=== PATIENT | female | born 1945 | race Caucasian/White ===

== ENCOUNTER 2018-08-31 07:30 | Day surgery (SDC) | payer OTHER, BC ==
[2018-08-31 08:01] VITALS: BMI 19.5
[2018-08-31 08:55] VITALS: TEMP 97.9
[2018-08-31 09:15] VITALS: PULSE 60
[2018-08-31 09:30] VITALS: BP 110/70
--- NOTE | 2018-09-01 16:20 | PATH ---
Surgical Pathology Report Patient Name: ARTEMIO ESPINOSA [facility]. Rec. #: [id number] /Age/Gender: 1945 (Age: 72) / F Account: [id number] Location: [facility]-ENDOSCOPY Taken: 08/31/2018 Received: 08/31/2018 Reported: 09/01/2018 Physicians: Patsy Bernard M.D. Specimen(s) Received A: BX TRANSVERSE COLON POLYP B: RECTAL POLYPS Clinical History History of adenomatous polyps, screening Postoperative diagnosis: Colon polyps, hemorrhoids Final Diagnosis A. TRANSVERSE COLON, POLYP, BIOPSY: COLONIC MUCOSA SHOWING REACTIVE LYMPHOID AGGREGATE. B. RECTUM, POLYPS, BIOPSY: HYPERPLASTIC POLYPS. Electronically Signed Radha Crowder M.D. Gross Description A. Received in formalin, labeled "transverse colon polyp biopsy" is a gasca, irregular portion of soft tissue measuring 0.3 cm. in greatest dimension. The specimen is submitted in toto in one cassette. B. Received in formalin, labeled "rectal polyps biopsy" are 4 gasca, irregular portions of soft tissue ranging from 0.1-0.3 cm. in greatest dimension. The specimens are submitted in toto in one cassette. 08/31/201808/31/2018
== END 2018-08-31 09:30 | disposition home or self-care (01) ==
LOC: JASU-ENDO 07:30
PROVIDERS: ATTEND Internal Medicine Gastroenterology
PROC: 0DBL8ZX Excision of Transverse Colon, Via Natural or Artificial Opening Endoscopic, Diagnostic (ICD-10-PCS; 2018-08-31)
PROC: 0DBP8ZX Excision of Rectum, Via Natural or Artificial Opening Endoscopic, Diagnostic (ICD-10-PCS; principal; 2018-08-31 08:45)
DX: Z12.11 Encounter for screening for malignant neoplasm of colon (principal); Z86.010 Personal history of colon polyps; K62.1 Rectal polyp; D12.3 Benign neoplasm of transverse colon; K63.89 Other specified diseases of intestine
CPT/HCPCS: 88305-TC

== ENCOUNTER 2020-09-20 04:47 | Day surgery (SDC) | payer OTHER, BC ==
[2020-09-18 16:29] VITALS: BMI 19.5
[~2020-09-20 04:47] MED LIST: ACETAMINOPHEN 325 MG TABLET (FP) PO PRN
[2020-09-20] MEDS ORDERED: OFLOXACIN 0.3% OPHTHALMIC SOLUTION 5 ML BOTTLE ONE (07:16)
[2020-09-20] MEDS ORDERED: TROPICAMIDE 1% OPHTH SOLN 15 ML BOTTLE ONE (07:16)
[2020-09-20] MEDS ORDERED: CYCLOPENTOLATE HCL 1% OPHTH SOLN 2 ML BOTTLE ONE (07:17)
[2020-09-20] MEDS ORDERED: KETOROLAC TROMETHAMINE 0.5% EYE DROP 1 DROP DROPS ONE (07:17)
[2020-09-20] MEDS ORDERED: POVIDONE-IODINE 5% OPHTHALMIC PREP 30 ML SOLUTION ONE (07:26)
[2020-09-20] MEDS ORDERED: LIDOCAINE HCL/PF 1% SDV 5ML VIAL ONE (07:26)
[2020-09-20] MEDS ORDERED: TETRACAINE 0.5% OPHTH SOLN 2 ML BOTTLE ONE (07:26)
[2020-09-20] MEDS ORDERED: TRYPAN BLUE 0.5 ML DISP.SYRIN ONE (07:26)
[2020-09-20] MEDS: PHENYLEPHRINE 2.5% OPHTH SOLN 15 ML BOTTLE OP SCH ×3 (07:50→08:07)
[2020-09-20] MEDS: OFLOXACIN 0.3% OPHTHALMIC SOLUTION 5 ML BOTTLE OP SCH ×3 (07:50→08:08)
[2020-09-20] MEDS: CYCLOPENTOLATE HCL 1% OPHTH SOLN 2 ML BOTTLE OP SCH ×3 (07:50→08:08)
[2020-09-20] MEDS: KETOROLAC TROMETHAMINE 0.5% EYE DROP 1 DROP DROPS OP SCH ×3 (07:50→08:08)
[2020-09-20] MEDS: TROPICAMIDE 1% OPHTH SOLN 15 ML BOTTLE OP SCH ×3 (07:50→08:07)
[2020-09-20] MEDS ORDERED: TETRACAINE 0.5% OPHTH SOLN 2 ML BOTTLE TP ONE (09:13)
[2020-09-20] MEDS ORDERED: CHONDROITIN SU A/HYALUR SOD 1 KIT IO ONE (09:22)
[2020-09-20] MEDS ORDERED: LIDOCAINE HCL 1% PRESERVATIVE FREE - 30ML VIAL IO ONE (09:22)
[2020-09-20] MEDS ORDERED: EPINEPHrine/PF 1 MG/1 ML (1:1,000) AMPULE SQ ONE (09:27)
[2020-09-20 10:33] VITALS: TEMP 97.5
[2020-09-20 13:03] VITALS: BP 134/70; PULSE 66
== END 2020-09-20 13:05 | disposition home or self-care (01) ==
LOC: JASU-SURG 04:47
PROVIDERS: ATTEND Ophthalmology
PROC: 08RJ3JZ Replacement of Right Lens with Synthetic Substitute, Percutaneous Approach (ICD-10-PCS; principal; 2020-09-20 09:00)
DX: H26.9 Unspecified cataract (principal)

== ENCOUNTER 2023-10-03 04:59 | Day surgery (SDC) | payer OTHER, BC ==
[2023-10-01 12:43] VITALS: BMI 19.5
[2023-10-03 11:11] VITALS: TEMP 97.9
[2023-10-03 11:46] VITALS: RESP 14
[2023-10-03 11:47] VITALS: BP 116/82; PULSE 55
== END 2023-10-03 11:47 | disposition home or self-care (01) ==
LOC: JASU-ENDO 04:59
PROVIDERS: ATTEND Internal Medicine Gastroenterology
PROC: 0DBN8ZX Excision of Sigmoid Colon, Via Natural or Artificial Opening Endoscopic, Diagnostic (ICD-10-PCS; 2023-10-03)
PROC: 0DBP8ZX Excision of Rectum, Via Natural or Artificial Opening Endoscopic, Diagnostic (ICD-10-PCS; principal; 2023-10-03 11:00)
DX: Z12.11 Encounter for screening for malignant neoplasm of colon (principal); D12.8 Benign neoplasm of rectum; D12.5 Benign neoplasm of sigmoid colon; K63.89 Other specified diseases of intestine; K64.8 Other hemorrhoids; K57.30 Diverticulosis of large intestine without perforation or abscess without bleeding; Z86.010 Personal history of colon polyps
CPT/HCPCS: 88305-TC